=== PATIENT | male | born 1985 | race Caucasian/White ===

== ENCOUNTER 2016-11-22 12:13 | Emergency (ER) | payer BC ==
[~2016-11-22 12:13] MED LIST: ANXIETY MEDICATION; CIPRO PO; DECADRON PO; FLEXERIL10 MG PO; NAPROSYN500 MG PO; NO MEDICATIONS; PEPCID40 MG PO; PREDNISONE PO; TYLENOL #3 PO; WELLBUTRIN PO; WELLBUTRIN SR150 MG PO
== END 2016-11-22 14:04 | disposition home or self-care (01) ==
LOC: SED 12:13
DX: S61.012A Laceration without foreign body of left thumb without damage to nail, initial encounter (principal); Z79.899 Other long term (current) drug therapy; Z23 Encounter for immunization; W31.2XXA Contact with powered woodworking and forming machines, initial encounter; Y92.009 Unspecified place in unspecified non-institutional (private) residence as the place of occurrence of the external cause
CPT/HCPCS: 12001; 90471; 90715; 99283